=== PATIENT | female | born 2000 | race Caucasian/White ===

== ENCOUNTER 2025-06-28 09:43 | Emergency (ER) | payer OTHER, SELFPAY ==
--- NOTE | ~2025-06-28 | CT_ITS ---
EXAMINATION: CTA NECK WITH CONTRAST (STROKE) CTA BRAIN WITH CONTRAST (STROKE) CLINICAL INFORMATION: Severe headache. COMPARISON: None available. TECHNIQUE: CTA of the head and neck was performed in the axial plane from the mediastinum to the skull vertex using 70 mL Omnipaque 350 intravenous contrast. Additional reformatted multiplanar images including maximum intensity projection MIP images are generated on the CT workstation. This CT examination was performed using dose optimization techniques as appropriate, variously including the following: *Automated exposure control *Adjustment of mA and/or kV according to patient size (this includes techniques or standardized protocols for targeted exams where dose is matched to indication/reason for exam; i.e. extremities or head) *Use of iterative reconstruction technique DLP: 1492 mGy-cm FINDINGS: The degree of stenosis determined by criteria similar to NASCET. Brain: No acute intracranial hemorrhage, mass effect, midline shift, hydrocephalus or herniation. Herrera-white matter differentiation is normal. Posterior cranial fossa contents demonstrated no acute hemorrhage or mass effect. Normal position of the cerebellar tonsils. Sellar/suprasellar region demonstrated no gross masses. Tympanic cavities and mastoid cells are aerated. No air-fluid levels in the paranasal sinuses. Chest CTA: The included aortic arch is normal. The main branches are patent without focal stenosis or intimal flap. Neck CTA: Right CCA: Normal patency. No focal stenosis. No intimal flap. Right ICA: Normal patency. No focal stenosis. No intimal flap. Normal diameter. No plaque. Left CCA: Normal patency. No focal stenosis. No intimal flap. No plaque. Left ICA: Normal patency. Normal diameter. No focal stenosis. No plaque. No intimal flap. V1/V2 segments: Normal patency. No focal stenosis. No intimal flap. Codominant. Both origin from the subclavian arteries. Brain CTA: Anterior cerebral circulation: ICAs: Normal patency. No focal stenosis. No abrupt cut off. No vascular irregularity at the ICA terminus. MCA's: Normal patency. No focal stenosis. No abrupt cut off. Bifurcation/trifurcation demonstrated no abnormality. ACAs: Normal patency. No focal stenosis. No abrupt cut off. No vascular abnormality. Anterior communicating artery is patent without vascular abnormality. Ophthalmic arteries are patent without vascular abnormality. Posterior communicating arteries are patent without vascular abnormality. Posterior cerebral circulation: V3/V4 segments: Normal patency. No focal stenosis. No intimal flap. Posterior inferior cerebral arteries are normal. Anterior inferior cerebellar arteries are normal. Basilar artery is normal. Superior cerebellar arteries are normal. surg nurse: Normal patency. No focal stenosis. No abrupt cutoff. No vascular abnormality. Ancillary findings: No main cerebral venous sinus thrombosis. No abnormal enhancement in the intra-axial or the extra-axial compartment of the cranium. Bilateral prominent palatine tonsils. Nonspecific prominent cervical lymph nodes. Thyroid gland is not enlarged. Small marginal osteophyte formation C5-6. CT/CT angio head neck IMPRESSION: No high degree stenosis or dissection. No cerebral aneurysm. Normal CT angiogram head neck. No acute or structural brain abnormality by CT.. This critical test result is communicated to: Emergency physician Dr. Regan Mcdonald at 11:59 AM on June 28, 2025 via [employer]. Electronically signed by: Kingston Morales MD 06/28/2025 12:08 PM [facility]
[2025-06-28 09:49] VITALS: BP 104/62; BP 125/75; PULSE 60; PULSE 63; RESP 16; TEMP 36.9; O2SAT 98; O2SAT 99; BMI 33.4
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
[2025-06-28 10:34] LABS: MANUAL DIFF FLAG NO
[2025-06-28 10:37] LABS: Appearance Urine Clear; Glucose Urine UA Negative (Negative); PH 7.5 (5.0-9.0); Specific Gravity - Urine 1.010 (1.005-1.025)
[2025-06-28 10:39] LABS: UPreg QC Valid YES
[2025-06-28 10:52] LABS: Hematocrit 47.4 % (37.0-47.0); Hemoglobin 16.5 g/dl (12.0-16.0); Imm Gran Abs Auto 0.08 X10*3/uL (0.00-0.03); Imm Gran Pct Auto 0.5 % (0.0-0.4); Lymphocytes Absolute Auto 1.1 X10*3/uL (1.2-4.9); Mean Corpuscular HGB Conc 34.8 g/dl (31.0-35.0); Mean Corpuscular Hemoglobin 33.4 pg (27.0-33.0); Mean Corpuscular Volume 96.0 fL (80.0-98.0); NRBC Abs Auto 0.000 X10*3/uL (0.0-0.012); NRBC Pct Auto 0.0 /100WBC (0.0-0.2); Platelet Count 283 X10*3/uL (160-400); Red Blood Count 4.94 X10*6/uL (4.20-5.50); White Blood Count 15.5 X10*3/uL (4.8-10.8)
[2025-06-28 10:53] LABS: Cannabinoid Screen Urine POSITIVE (Not Detect)
[2025-06-28 11:14] LABS: Alanine Aminotransferase 27 U/L (0-31); Albumin Level 5.4 g/dL (3.5-5.0); Alkaline Phosphatase 102 U/L (39-117); Anion Gap 12 (12-20); Aspartate Amino Transferase 23 U/L (5-31); Blood Urea Nitrogen 9 mg/dL (9-16); Calcium 10.2 mg/dL (8.4-10.2); Carbon Dioxide 28 mmol/L (22-29); Chloride 106 mmol/L (96-108); Creatinine Clr Calc Pharmacy 140.6; Estimated Glomerular Filt Rate > 60; Magnesium 2.1 mg/dL (1.6-2.6); Potassium 4.0 mmol/L (3.3-5.1); Sodium 142 mmol/L (135-145); Total Protein 8.3 g/dL (6.5-8.0)
[2025-06-28] MEDS: iohexoL 350 MG/ML 100 ML INFUS..BTL IV (11:39)
[2025-06-28 12:13] VITALS: BP 101/52; PULSE 51; RESP 16; TEMP 36.7; O2SAT 100
[2025-06-28 12:28] VITALS: BP 101/52; PULSE 51; RESP 16; TEMP 36.7; O2SAT 100
== END 2025-06-28 12:29 | disposition home or self-care (01) ==
PROVIDERS: Emergency Provider Emergency Medicine
DX: R51.9 Headache, unspecified (principal); R11.10 Vomiting, unspecified
CPT/HCPCS: 36415; 70496; 70498; 80053; 80307; 81003; 81025; 83735; 84702; 85025; 96361; 96374; 96375; 99284; J1200; J2765; Q9967

== ENCOUNTER → 2025-06-28 10:13 | Outpatient (BNV) | payer OTHER, SELFPAY | PROVIDERS: Emergency Provider Emergency Medicine; Visit Provider Radiology Diagnostic Radiology | DX: R51.9 Headache, unspecified (principal) | CPT/HCPCS: 70496; 70498 ==